=== PATIENT | female | born 1940 | race Caucasian/White ===

== ENCOUNTER → 2016-12-08 | Outpatient (CLI) | payer OTHER ==
--- NOTE | 2016-12-08 11:24 | DX ---
DEXA Bone Mineral Densitometry Clinical Indications: Postmenopausal, family history of osteoporosis, back pain, fracture, history o f breast cancer, tamoxifen x8 years Comparison: April 28, 2014 Technique: Bone Mineral Densitometry (BMD) by Dual Energy X-Ray Absorptiometry (DEXA) was performed utilizing the [email or web address] scanner. The lumbar spine was not measured in the AP projection. The bi lateral hips and forearm were evaluated in the AP projection. Vertebral fracture assessment was also performed. AP Left Hip: Neck BMD: 0.809 gm/cm2 T-score: -1.6 SD Z-score: 0.2 SD No significant change in total BMD AP Right Hip: Neck BMD: 0.788 gm/cm2 T-score: -1.8 SD Z-score: 0.1 SD No significant change in total BMD AP Left Forearm, 11/18: BMD: 0.744 gm/cm2 T-score: -1.5 SD Z-score: 0.8 SD No significant change. Vertebral Fracture Assessment: No significant fracture deformity. Conclusion: Considering the lowest measured site, the patient has stable low bone density. The ten year FRAX risk for any major osteoporotic fracture is 19.1% and for a hip fracture is 4.3%. A ccording to the recommendations of the National Osteoporosis Foundation, this patient would be a good candidate for bone strengthening pharmacologic intervention. Any bone loss in this patient is probably related to aging or estrogen deficiency. To prevent osteoporosis and to promote the patient's bone density, the following recommendations shou ld be considered: 1. Pursue a regular regimen of weightbearing and muscle strengthening exercises in order to reduce t he risk of falls and fractures (as tolerated by the patient's general medical condition). 2. Ensure that daily dietary calcium uptake is maximized. 3. Consider checking the serum vitamin D level. Ensure that intake of vitamin D is 800 IU per day (f or ages 71 and older). 4. Consider follow-up DEXA scan in one year if the patient begins pharmacologic intervention or in t wo years if she follows a more conservative approach, to assess the efficacy of pharmacologic interv ention or rate of bone loss in this patient.
== END ==
LOC: FIMAGING 10:16
PROVIDERS: ATTEND Internal Medicine Hematology & Oncology
DX: Z13.820 Encounter for screening for osteoporosis (principal); Z78.0 Asymptomatic menopausal state; Z85.3 Personal history of malignant neoplasm of breast

== ENCOUNTER → 2017-07-10 | Outpatient (CLI) | payer OTHER | LOC: FIMAGING 09:45 | PROVIDERS: ATTEND Internal Medicine Hematology & Oncology | CPT/HCPCS: G0202 ==

== ENCOUNTER 2017-11-24 16:57 | Emergency (ER) | payer OTHER ==
[2017-11-24] MEDS ORDERED: NS 1,000 ML IV ONE (19:13)
--- NOTE | 2017-11-24 19:16 | EDPHY ---
H & P Stated Complaint: flu like symptoms fever cough body/neck stiffness/aches since x mas Source: Patient Exam Limitations: No limitations - Personal History Current Tetanus/Diphtheria Vaccine: Yes - Medical/Surgical History Hx Asthma: No Hx Chronic Respiratory Disease: No Hx Diabetes: No Hx Cardiac Disease: No Hx Renal Disease: No Hx Cirrhosis: No Hx Alcoholism: No Hx HIV/AIDS: No Hx Splenectomy or Spleen Trauma: No Other PMH: breast cancer - Family History Significant Family History: No pertinent family hx - Social History Smoking Status: Never smoked Alcohol Use: Sober Drug Use: None Time Seen by Provider: 11/24/17 18:57 HPI/ROS: CHIEF COMPLAINT: Left neck pain and fevers HISTORY OF PRESENT ILLNESS: The patient is a 77-year-old female with no significant past medical history who comes to the emergency department complaining of persistent left-sided neck pain and fevers as well as a dry cough. She states that she began to have a cold at [place] and it improved over about the next 10 days however she then developed sinus congestion on the left with mucousy discharge as well as left-sided neck pain. No headache. No altered mental status. She has had fevers off and on. This morning she had a fever of 101. She has been taking aspirin occasionally most recently 4:00 p.m.. She is primarily worried about the pain and how she is going to sleep with such a sore neck. She denies any trauma. No focal weakness numbness or deficits. No bowel or bladder abnormalities. No abdominal pain. No chest pain or shortness of breath. She denies other sites of musculoskeletal pain. REVIEW OF SYSTEMS: Constitutional: See HPI EENTM: See HPI Respiratory: denies: cough, shortness of breath Cardiac: denies: chest pain, irregular heart rate, lightheadedness, palpitations Gastrointestinal/Abdominal: denies: abdominal pain, diarrhea, nausea, vomiting, blood streaked stools Genitourinary: denies: dysuria, frequency, hematuria, pain Musculoskeletal: See HPI Skin: denies: lesions, rash, jaundice, bruising Neurological: denies: headache, numbness, paresthesia, tingling, dizziness, weakness Hematologic/Lymphatic: denies: blood clots, easy bleeding, easy bruising Immunologic/allergic: denies: HIV/AIDS, transplant EXAM: GENERAL: Well-appearing, well-nourished and in no acute distress. HEAD: Atraumatic, normocephalic. EYES: Pupils equal round and reactive to light, extraocular movements intact, sclera anicteric, conjunctiva are normal. ENT: TMs normal, nares patent, oropharynx clear without exudates. Moist mucous membranes. NECK: Left-sided posterior muscle pain. No bony tenderness or step-offs. No tenderness with massage. No rash or erythema. No swelling. Normal range of motion, some pain with flexion LUNGS: Breath sounds clear to auscultation bilaterally and equal. No wheezes rales or rhonchi. HEART: Regular rate and rhythm without murmurs, rubs or gallops. ABDOMEN: Soft, nontender, normoactive bowel sounds. No guarding, no rebound. No masses appreciated. BACK: No CVA tenderness, no spinal tenderness, step-offs or deformities EXTREMITIES: Normal range of motion, no pitting or edema. No clubbing or cyanosis. NEUROLOGICAL: Cranial nerves II through XII grossly intact. Normal speech, normal gait. 5/5 strength, normal movement in all extremities, normal sensation PSYCH: Normal mood, normal affect. SKIN: Warm, dry, normal turgor, no visible rashes or lesions. (Saw Carrizales) Constitutional: Initial Vital Signs Temperature (C) 36.9 C 11/24/17 17:30 Heart Rate 88 11/24/17 17:30 Respiratory Rate 18 11/24/17 17:30 Blood Pressure 148/98 H 11/24/17 17:30 O2 Sat (%) 94 11/24/17 17:30 O2 Delivery Mode Room Air Allergies/Adverse Reactions: No Known Allergies Allergy (Verified 11/24/17 17:29) Home Medications: Medication Instructions Recorded CHOLECALCIFEROL [VITAMIN D] 11/07/11 Tamoxifen Citrate 11/07/11 Venlafaxine HCl [Effexor] 11/07/11 Lisinopril 11/24/17 Medical Decision Making - Diagnostics Imaging Results: Imaging Impressions Head CT 11/24/17 19:14 Impression: 1. Mild atrophy. 2. No acute hemorrhage, hydrocephalus, or mass effect. 3. Cerebrovascular atherosclerosis. 4. No definite acute infarct. 5. No sinusitis 6. Consider MRI of the brain, if there is continued clinical concern. . Findings and recommendations discussed with Emergency Department physician, SAW CARRIZALES at 19:33 hour, 11/24/2017. Final report concurs with initial preliminary interpretation. Lumbar Puncture 11/24/17 21:02 Impression: Successful diagnostic lumbar puncture. Specimens sent to the Laboratory. Procedures: Procedure: Lumbar puncture. Indication: Rule out infection After verbal informed consent from patient explaining the risks including infection, bleeding, and neurologic damage, a lumbar puncture was performed after the patient was prepped and draped in the usual fashion. The back was anesthetized with 1% lidocaine. The needle was inserted and a small amount of CSF was obtained but after about 2 drops it stopped flowing. Multiple attempts were made to adjust the needle in even attempted to go 1 level higher unsuccessfully. Approximately less than 1 cc of clear fluid was obtained. Opening pressure was not obtained. There were no complications. Not sent to the lab because insufficient The procedure was performed by myself. (Saw Carrizales) ED Course/Re-evaluation: I did perform a lumbar puncture on this patient. After about 2 drops of CSF it stopped flowing. I tried switching needles and it happened again. I then tried going up a level without success. I will have the patient go to interventional Radiology tab procedure done under fluoroscopy. Otherwise she is well-appearing feeling much better after Toradol. 9:20 p.m. care transferred to Dr. Corona. If the patient's lumbar puncture is unremarkable she will likely be discharged. She is already feeling much better. (Saw Carrizales) Differential Diagnosis: Partial list of the Differential diagnosis considered include but were not limited to; viral syndrome, muscle strain, sinus infection and although unlikely based on the history and physical exam, I also considered meningitis, sepsis, neuropathy. I discussed these differential diagnoses and the plan with the patient as well as the usual and expected course. The patient understands that the diagnosis is provisional and that in medicine we are not always correct and that further workup is often warranted. Usual and customary warnings were given. All of the patient's questions were answered. The patient was instructed to return to the emergency department should the symptoms at all worsen or return, otherwise to followup with the physician as we discussed. (Saw Carrizales) Other Provider: Care assumed from All at 2130 with DC if LP to be performed in radiology shows negative CSF. Signed out to Corwin at 2300 with patient in IR. (Jordy Corona) 12:30 a.m.- . LP performed is negative, just a few red blood cells are seen. Discussed these results with the patient. She is feeling better though still has some neck spasms. I will discharge her with instructions for ibuprofen, Tylenol, Valium as needed. She is in agreement with this plan. (Esther Olivia) - Data Points Laboratory Results: Laboratory Results 11/24/17 19:15 11/24/17 19:15 11/24/17 11/24/17 11/24/17 22:49 22:47 21:13 WBC RBC Hgb Hct MCV MCH MCHC RDW Plt Count MPV Neut % (Auto) Lymph % (Auto) [place] % (Auto) Eos % (Auto) Baso % (Auto) Nucleat RBC Rel Count Absolute Neuts (auto) Absolute Lymphs (auto) Absolute Monos (auto) Absolute Eos (auto) Absolute Basos (auto) Absolute Nucleated RBC Immature Gran % Immature Gran # PT 14.6 SEC SEC (12.0-15.0) INR 1.12 (0.83-1.16) APTT 26.8 SEC SEC (23.0-38.0) Sodium Potassium Chloride Carbon Dioxide Anion Gap BUN Creatinine Estimated GFR Glucose Calcium CSF Tube Number 4 1 CSF Appearance CLEAR CLEAR (CLEAR) (CLEAR) CSF Color COLORLESS COLORLESS (COLORLESS) (COLORLESS) CSF Supernatant COLORLESS COLORLESS (COLORLESS) (COLORLESS) CSF WBC 0 /mm3 /mm3 0 /mm3 /mm3 (0-5) (0-5) CSF RBC 3 /mm3 H /mm3 18 /mm3 H /mm3 (0-0) (0-0) CSF Glucose 56 mg/dL mg/dL (50-75) CSF Total Protein 53 mg/dL mg/dL (12-60) 11/24/17 11/24/17 19:15 19:15 WBC 13.85 10^3/uL H 10^3/uL (3.80-9.50) RBC 4.41 10^6/uL 10^6/uL (4.18-5.33) Hgb 13.7 g/dL g/dL (12.6-16.3) Hct 39.1 % % (38.0-47.0) MCV 88.7 fL fL (81.5-99.8) MCH 31.1 pg pg (27.9-34.1) MCHC 35.0 g/dL g/dL (32.4-36.7) RDW 12.9 % % (11.5-15.2) Plt Count 208 10^3/uL 10^3/uL (150-400) MPV 10.9 fL fL (8.7-11.7) Neut % (Auto) 77.3 % H % (39.3-74.2) Lymph % (Auto) 11.8 % L % (15.0-45.0) [place] % (Auto) 9.4 % % (4.5-13.0) Eos % (Auto) 0.6 % % (0.6-7.6) Baso % (Auto) 0.5 % % (0.3-1.7) Nucleat RBC Rel Count 0.0 % % (0.0-0.2) Absolute Neuts (auto) 10.69 10^3/uL H 10^3/uL (1.70-6.50) Absolute Lymphs (auto) 1.64 10^3/uL 10^3/uL (1.00-3.00) Absolute Monos (auto) 1.30 10^3/uL H 10^3/uL (0.30-0.80) Absolute Eos (auto) 0.09 10^3/uL 10^3/uL (0.03-0.40) Absolute Basos (auto) 0.07 10^3/uL 10^3/uL (0.02-0.10) Absolute Nucleated RBC 0.00 10^3/uL 10^3/uL (0-0.01) Immature Gran % 0.4 % % (0.0-1.1) Immature Gran # 0.06 10^3/uL 10^3/uL (0.00-0.10) PT INR APTT Sodium 138 mEq/L mEq/L (135-145) Potassium 4.1 mEq/L mEq/L (3.5-5.2) Chloride 104 mEq/L mEq/L (97-110) Carbon Dioxide 23 mEq/l mEq/l (22-31) Anion Gap 11 mEq/L mEq/L (8-16) BUN 21 mg/dL mg/dL (7-23) Creatinine 0.8 mg/dL mg/dL (0.6-1.0) Estimated GFR > 60 Glucose 106 mg/dL H mg/dL (70-100) Calcium 9.4 mg/dL mg/dL (8.5-10.4) CSF Tube Number CSF Appearance CSF Color CSF Supernatant CSF WBC CSF RBC CSF Glucose CSF Total Protein Microbiology Results: MICROBIOLOGY 11/24/17 22:47 Cerebral Spinal Fluid Gram Stain - Final Medications Given: Discontinued Medications Diazepam (Valium 5 Mg Prepack#4) 1 btl TAKEHOME EDNOW ONE Stop: 11/25/17 00:32 Last Admin: 11/25/17 00:42 Dose: 1 btl Sodium Chloride (Ns) 1,000 mls @ 0 mls/hr IV ONCE ONE; Wide Open PRN Reason: Protocol Stop: 11/24/17 19:14 Last Admin: 11/24/17 19:37 Dose: 1,000 mls Ketorolac Tromethamine (Toradol) 15 mg IVP EDNOW ONE Stop: 11/24/17 19:33 Last Admin: 11/24/17 19:41 Dose: 15 mg Departure - Departure Disposition: Home, Routine, Self-Care Clinical Impression: Neck muscle spasm Condition: Good Instructions: Diazepam (By mouth), Cervical Strain (ED) Additional Instructions: I recommend you take ibuprofen 400 mg every 6 hr, you can take this with acetaminophen 650 mg every 6 hr. If your still having pain after this, I recommend you take the Valium as prescribed. You should follow up with your primary care doctor in 1-2 days unless your feeling completely better. Referrals: Maria Isabel Sparks PA [Primary Care Provider] - As per Instructions
[2017-11-24 19:27] LABS: PLATELET COUNT 208 10^3/uL (150-400)
[2017-11-24] MEDS ORDERED: KETOROLAC 30 MG/1 ML SDV IVP ONE (19:32)
--- NOTE | 2017-11-24 19:37 | CPEKG ---
Heart Rate: 82 RR Interval: 732 P-R Interval: 176 QRSD Interval: 84 QT Interval: 400 QTC Interval: 468 P [place]: 74 QRS [place]: 10 T Wave [place]: 4 EKG Severity - NORMAL ECG - EKG Impression: SINUS RHYTHM Electronically Signed By: Jordy Corona 24-Nov-2017 23:07:24
[2017-11-24 21:29] LABS: INR 1.12 (0.83-1.16); PROTIME(PATIENT) 14.6 SEC (12.0-15.0)
[2017-11-24] MEDS ORDERED: LIDOCAINE 1% 300 MG/30 ML SDV ONE (21:38)
[2017-11-24 23:04] VITALS: RESP 16
[2017-11-25] MEDS ORDERED: DIAZEPAM 5 MG PREPACK#4 BTL TAKEHOME ONE (00:31)
[2017-11-25 00:34] VITALS: BP 134/69; PULSE 71; TEMP 98.6; O2SAT 96
== END 2017-11-25 00:51 | disposition home or self-care (01) ==
PROC: 009U3ZX Drainage of Spinal Canal, Percutaneous Approach, Diagnostic (ICD-10-PCS; principal; 2017-11-24)
PROC: 009U3ZX Drainage of Spinal Canal, Percutaneous Approach, Diagnostic (ICD-10-PCS; 2017-11-24)
DX: M62.838 Other muscle spasm (principal); E86.9 Volume depletion, unspecified; Z85.3 Personal history of malignant neoplasm of breast
CPT/HCPCS: 62270; 70450; 93005; 96361; 96374; 99285; J1885

== ENCOUNTER 2017-11-28 13:10 | Observation (INO) | payer OTHER ==
--- NOTE | 2017-11-28 13:46 | EDPHY ---
HPI/HX/ROS/PE/MDM Narrative: CHIEF COMPLAINT: Neck stiffness, facial droop and swelling HISTORY OF PRESENT ILLNESS: The patient is a 77 y/o female with a history of breast cancer (treated with tamoxifen), and hypertension, arriving with her complaining of neck pain and stiffness and facial droop and swelling. She was ill starting around [place] with a cough, fatigue, and rhinorrhea. She was evaluated in this ED on Thursday, 4 days ago, for neck stiffness at which time she had blood work, head CT, and spinal tap. All of these tests were unremarkable. She was advised to follow-up with her PCP fro continued care of her neck stiffness. Her PCP prescribed Valium for pain and advised her to continue taking Tylenol. She had a low-grade fever a few days ago that resolved. Aside from the fever she had been feeling better. Last night, she went to bed and woke up a few hours later with increased pain in her neck. She took half of a 5 mg Valium and went back to bed. She woke up a few hours later and was still in pain. She took the other half of her 5 mg Valium and went to sleep. Again, a few hours later she awoke in pain and took Tylenol and went back to bed. When she woke up in the morning she was slightly better. She went to have a hair cut and on the drive over noticed some facial tingling. After the hair cut she looked in the mirror and noticed a left-sided facial droop. She consulted a triage nurse who directed her to be evaluated for a possible stroke. On her way to the ED, she began developing left-sided facial swelling. She has associated fatigue. She is currently afebrile. She denies any tingling or numbness in her extremities, word-finding difficulty, visual changes ,headache, tooth pain, difficulty speaking clearly, other neurological issues, or any other associated symptoms. She denies cardiac history. No fever, chills, chest pain, shortness of breath, palpitations, vomiting, diarrhea, urinary complaints, headache, lightheadedness. REVIEW OF SYSTEMS: Aside from elements discussed in the HPI, a comprehensive 10-point review of systems was reviewed and is negative. PAST MEDICAL HISTORY: Breast cancer, hypertension, mood instability, recent illness SOCIAL HISTORY: at bedside, lives in [place], retired VITAL SIGNS: Reviewed by me GENERAL: Well-developed, well-nourished, resting comfortably in no respiratory distress. Pleasant. HEENT: Atraumatic. Face: swelling of left lip, left cheek, and left under eye. No warmth. No erythema. No dental source by history. Eyes: No icterus, no injection. Mouth: moist mucous membranes. Minimal swelling of left tonsil and tonsillar palate. No erythema or lesions. Neck: Submandibular adenopathy, tenderness in the left posterior trapezius, left upper paraspinous, and left upper neck soft tissues. LUNGS: Clear to auscultation bilaterally, no wheezes, rhonchi or rales. CARDIAC: Regular rate and rhythm, no rubs, murmurs or gallops. ABDOMEN: Soft, nontender, nondistended, bowel sounds normal. BACK: No CVA tenderness. EXTREMITIES: No trauma. No edema. Range of motion is normal throughout. NEURO: Alert and oriented, grossly nonfocal. SKIN: Warm and dry, no rash. PSYCHIATRIC: Normal mentation, no agitation. ED Course: The patient presents with several weeks of neck stiffness and new onset facial swelling. She noticed a facial droop earlier but denies any neurologic symptoms and has a normal neurological exam. Her pain has increased over the past day. She denies any recent changes in medication. Plan for neck CT and labs. CT scan of the neck with IV contrast as well as CT maxillofacial do not indicate any inflammatory or infectious source of her symptoms. I reassessed this patient and found her neck stiffness and pain improved. Her facial swelling has worsened. She now informs me she may have had hives yesterday on her neck. Patient may be developing an allergic reaction or may be having lip swelling secondary to lisinopril. However it is unilateral, only affecting the left side of her lip. She has no tongue swelling. Plan for epi, Benadryl, and steroids and then reevaluation. I administered steroids, epi, and Benadryl and her lip swelling continues to worsen. At this point in time I feel admission is her best option. I spoke to the hospitalist service regarding admission for this patient. They agree to admit. I discussed this with the patient. She agrees. MDM: 77-year-old female with posterior neck pain and stiffness left greater than right for several weeks now developing the swelling of the left side of her face especially around her left upper lip. Differential diagnosis includes deep space infection, muscle spasm, facial swelling secondary to lisinopril, allergic reaction, dental source for infection, superior vena cava syndrome in this patient with a history of breast cancer. - Data Points Imaging Results: Imaging Impressions Face CT 11/28/17 14:26 Impression: 1. No evidence of abscess or significant inflammatory changes within the face or neck. 2. Extensive cervical spine degenerative disk disease. Results called to Dr. Esperanza Scales at the time of the interpretation. Neck CT 11/28/17 14:26 Impression: 1. No evidence of abscess or significant inflammatory changes within the face or neck. 2. Extensive cervical spine degenerative disk disease. Results called to Dr. Esperanza Scales at the time of the interpretation. Imaging: Discussed imaging studies w/ call person Radiologist Laboratory Results: Laboratory Results 11/28/17 13:48 11/28/17 13:48 11/28/17 11/28/17 11/28/17 13:48 13:48 13:48 WBC 6.53 10^3/uL 10^3/uL (3.80-9.50) RBC 4.23 10^6/uL 10^6/uL (4.18-5.33) Hgb 13.2 g/dL g/dL (12.6-16.3) Hct 37.8 % L % (38.0-47.0) MCV 89.4 fL fL (81.5-99.8) MCH 31.2 pg pg (27.9-34.1) MCHC 34.9 g/dL g/dL (32.4-36.7) RDW 12.6 % % (11.5-15.2) Plt Count 235 10^3/uL 10^3/uL (150-400) MPV 10.5 fL fL (8.7-11.7) Neut % (Auto) 67.7 % % (39.3-74.2) Lymph % (Auto) 21.1 % % (15.0-45.0) [place] % (Auto) 7.8 % % (4.5-13.0) Eos % (Auto) 2.3 % % (0.6-7.6) Baso % (Auto) 0.9 % % (0.3-1.7) Nucleat RBC Rel Count 0.0 % % (0.0-0.2) Absolute Neuts (auto) 4.42 10^3/uL 10^3/uL (1.70-6.50) Absolute Lymphs (auto) 1.38 10^3/uL 10^3/uL (1.00-3.00) Absolute Monos (auto) 0.51 10^3/uL 10^3/uL (0.30-0.80) Absolute Eos (auto) 0.15 10^3/uL 10^3/uL (0.03-0.40) Absolute Basos (auto) 0.06 10^3/uL 10^3/uL (0.02-0.10) Absolute Nucleated RBC 0.00 10^3/uL 10^3/uL (0-0.01) Immature Gran % 0.2 % % (0.0-1.1) Immature Gran # 0.01 10^3/uL 10^3/uL (0.00-0.10) ESR 34 MM/HR H MM/HR (0-30) PT 13.5 SEC SEC (12.0-15.0) INR 1.01 (0.83-1.16) Sodium 141 mEq/L mEq/L (135-145) Potassium 4.5 mEq/L mEq/L (3.5-5.2) Chloride 101 mEq/L mEq/L (97-110) Carbon Dioxide 29 mEq/l mEq/l (22-31) Anion Gap 11 mEq/L mEq/L (8-16) BUN 15 mg/dL mg/dL (7-23) Creatinine 0.9 mg/dL mg/dL (0.6-1.0) Estimated GFR > 60 Glucose 119 mg/dL H mg/dL (70-100) Calcium 9.7 mg/dL mg/dL (8.5-10.4) C-Reactive Protein 31.0 mg/L H mg/L (<10.0) Medications Given: Diphenhydramine HCl (Benadryl Injection) 25 mg IVP Q4HRS SHI Stop: 05/27/18 21:59 Last Admin: 11/28/17 21:13 Dose: 25 mg Prednisone (Prednisone) 40 mg PO DAILY SHI Stop: 05/27/18 19:44 Last Admin: 11/28/17 21:13 Dose: 40 mg Discontinued Medications Diazepam (Valium Injection) 2.5 mg IVP EDNOW ONE Stop: 11/28/17 14:05 Last Admin: 11/28/17 14:22 Dose: 2.5 mg Diphenhydramine HCl (Benadryl Injection) 25 mg IVP EDNOW ONE Stop: 11/28/17 16:25 Last Admin: 11/28/17 17:05 Dose: 25 mg Epinephrine HCl (Epinephrine) 0.3 mg IM EDNOW ONE Stop: 11/28/17 16:25 Last Admin: 11/28/17 17:05 Dose: 0.3 mg Sodium Chloride (Ns) 1,000 mls @ 0 mls/hr IV ONCE ONE; Wide Open PRN Reason: Protocol Stop: 11/28/17 14:05 Last Admin: 11/28/17 14:19 Dose: 1,000 mls Ketorolac Tromethamine (Toradol) 15 mg IVP EDNOW ONE Stop: 11/28/17 14:05 Last Admin: 11/28/17 14:24 Dose: 15 mg Methylprednisolone Sodium Succinate (Solu-Medrol) 125 mg IVP EDNOW ONE Stop: 11/28/17 16:25 Last Admin: 11/28/17 17:11 Dose: 125 mg General Time Seen by Provider: 11/28/17 13:36 Initial Vital Signs: Initial Vital Signs Temperature (C) 36.6 C 11/28/17 13:16 Heart Rate 76 11/28/17 13:16 Respiratory Rate 18 11/28/17 13:16 Blood Pressure 155/82 H 11/28/17 13:16 O2 Sat (%) 97 11/28/17 13:16 O2 Delivery Mode Room Air Allergies/Adverse Reactions: No Known Allergies Allergy (Verified 11/24/17 17:29) Home Medications: Medication Instructions Recorded Tamoxifen Citrate 20 mg PO DAILY 11/07/11 Lisinopril/Hctz 10/12.5 mg 1 ea PO DAILY 11/24/17 [Zestoretic/Prinzide 10/12.5MG (*)] Venlafaxine Xr [Effexor Xr 75MG 75 mg PO DAILY 11/28/17 (*)] Departure - Departure Disposition: [facility] Clinical Impression: Neck pain, Lip swelling, Facial swelling Condition: Fair Report Scribed for: Esperanza Scales Report Scribed by: Fawn Sterling Date of Report: 11/28/17 Time of Report: 16:11 Physician Review and Approval Statement: Portions of this note were transcribed by a medical assistant supervisor. I personally performed a history, physical exam, medical decision making, and confirmed accuracy of information the transcribed note.
[2017-11-28] MEDS ORDERED: KETOROLAC 30 MG/1 ML SDV IVP ONE (14:04)
[2017-11-28] MEDS ORDERED: NS 1,000 ML IV ONE (14:04)
[2017-11-28] MEDS ORDERED: DIAZEPAM 10 MG/2 ML SYR IVP ONE (14:04)
[2017-11-28 14:10] LABS: PLATELET COUNT 235 10^3/uL (150-400)
[2017-11-28 14:23] LABS: INR 1.01 (0.83-1.16); PROTIME(PATIENT) 13.5 SEC (12.0-15.0)
[2017-11-28] MEDS ORDERED: IOPAMIDOL (ISOVUE-300) 100 ML BTL ONE (14:49)
[2017-11-28] MEDS ORDERED: methylPREDNISolone SOD SUCC 125 MG/2 ML VIAL IVP ONE (16:24)
[2017-11-28] MEDS ORDERED: ONDANSETRON 4 MG/2 ML VIAL IVP PRN (19:37)
[2017-11-28] MEDS ORDERED: ACETAMINOPHEN 325 MG TAB PO PRN (19:37)
[2017-11-28] MEDS ORDERED: ONDANSETRON DISINTEGRATING 4 MG TAB PO PRN (19:37)
[2017-11-28 20:18] VITALS: RESP 16
--- NOTE | 2017-11-28 20:39 | GHP ---
[f rep st] HISTORY AND PHYSICAL DATE OF ADMISSION: 11/28/2017 HISTORY OF PRESENT ILLNESS: The patient is a 77-year-old female with a history of hypertension and b reast cancer, who reports to the emergency department the 2nd time in a couple of days with neck stif fness. She was seen here a couple of days ago where she had apparently low-grade temperatures and ne ck stiffness, as well as a possible headache. She had a lumbar puncture that was unremarkable. She had a head CT that was unremarkable. She was discharged home. She has continued to have neck pain, which is in her left posterior neck and her scalene muscles. She has not had fever, chills, or headache. This morning, she was getting her hair cut. She looked in the mirror, she noticed she was having left-sided facial swelling. She states she has taken an AC E inhibitor for 9 or 10 months. She has no tongue swelling. She has no dysarthria. She has not had fever or chills. She takes tamoxifen for estrogen receptor positive breast cancer, it was a number of years ago. She has had normal followup since then. In the emergency department, she had a neck and face CT performed with contrast showing no evidence o f abscess. There are significant inflammatory changes within the face and the neck. She was noted t o have degenerative disk disease. I have reviewed and interpreted these images myself and discussed it with Esperanza Scales. The patient also denies any numbness or tingling or weakness in her left hand. REVIEW OF SYSTEMS: Complete 10-point review of systems conducted, negative except as noted in the HP I. PAST MEDICAL HISTORY: Breast cancer, hypertension. ALLERGIES: No known drug allergies. MEDICATIONS: Lisinopril/hydrochlorothiazide, tamoxifen, and venlafaxine. SOCIAL HISTORY: She is originally from [place], [place]. Lives here with her . She e [employer]. She is a lifelong nonsmoker. FAMILY HISTORY: Reviewed and unremarkable. PHYSICAL EXAMINATION: VITAL SIGNS: Presenting vitals today: Temperature 36.6, blood pressure 155/8 2, pulse 76, breathing 18 times a minute, 97% on room air. GENERAL: No acute distress. HEENT: Scl erae anicteric. Oropharynx shows full lips on the left side. Palpation inside her mouth reveals no mass, no fluctuance, no evidence of abscess. Her tongue is not swollen. There is normal oral mucosa . There is fullness in her left supraclavicular fossa, not seen on the right. LUNGS: Clear to ausc ultation bilaterally. HEART: S1, S2. ABDOMEN: Soft, nontender, nondistended. LOWER EXTREMITIES: Without edema. Calves are nontender. SKIN: Without rash. NEUROLOGIC: Nonfocal. LABORATORY DATA: Today, her white count is 6.5, hematocrit 37.8, platelets are 235,000. INR is 1. Sodium 141, potassium 4.5, chloride 101, bicarb 29, BUN 15, creatinine 0.9, glucose 119. CRP is elev ated at 31. ESR is 34. Imaging reports are as noted in the HPI. She had an EKG 3 days ago, also in terpreted by me, shows sinus at 82, with normal axis and intervals. No ST or T-wave changes. ASSESSMENT AND PLAN: A 77-year-old female with facial swelling and neck pain. 1. Face swelling/neck pain. I do not believe this is a reaction to lisinopril, although it is reaso nable to discontinue it. 2. I have concern that she has an intrathoracic process driving this. I have reordered a CT venogra m of the chest to evaluate for clot in her superior vena cava or internal jugular, as well as intrath oracic mass. I have also ordered an MRI of her cervical spine. 3. Hypertension. The patient is hypertensive, I think this probably warrants permanent discontinuat ion of her lisinopril. 4. Question of viral syndrome. I do not think the patient has a viral syndrome. There are no eleva dav inflammatory markers. See above. DISPOSITION: Observation status. /[id number]/MODL
[2017-11-28] MEDS: predniSONE 20 MG TAB PO SCH (21:13)
[2017-11-28] MEDS ORDERED: IOPAMIDOL (ISOVUE 370) 100 ML BTL IV ONE (21:35)
[2017-11-29] MEDS ORDERED: GADOBUTROL 10 ML VIAL IVP ONE (08:05)
[2017-11-29] MEDS ORDERED: TAMOXIFEN CITRATE 10 MG TAB PO SCH (09:00)
[2017-11-29] MEDS ORDERED: VENLAFAXINE XR 75 MG CAP PO SCH (09:00)
--- NOTE | 2017-11-29 09:26 | HOSPPROG ---
Hospitalist Progress Note Assessment/Plan: Patient is a 77-year-old female with a history of hypertension and breast cancer presented the emergency department with neck neck stiffness she has not had fever chills or headache. She noted that she had some left-sided facial swelling. Today the patient. Chart reviewed *facial swelling with neck pain CT of and neck show nothing acute CTA does not note SVC syndrome or PE to get and MRI lisinopril on hold *left facial droop with flattening of nasolabial fold she and her noticed yesterday, but no other type focal deficits will get a brain MRI to evaluate neurology to see Initially may been caused by the swelling and difficult to see, but with residual of the swelling continues to have left facial droop *HTN Blood pressure stable *Poss viral syndrome * severe central canal and severe bilateral neural foraminal stenosis, cord is compressed at 3 levels -spoke with Neurosurgery they will see her today * plan. Neurology to see today. Will get an MRI now. Spoke with Neurosurgery they will see her either today or tomorrow. Appreciate the involvement of the specialties. She had been to the ER earlier this week and had a lumbar puncture. Reviewed her CSF studies and this did not show any type of infectious process Subjective: Leatha overall is feeling better but is concerned about a left facial droop possibly Objective: Vital Signs Temp Pulse Resp BP Pulse Ox 36.9 C 84 16 110/60 94 11/29/17 07:58 11/29/17 07:58 11/29/17 07:58 11/29/17 07:58 11/29/17 07:58 11/28/17 11/29/17 11/30/17 05:59 05:59 05:59 Intake Total 1000 Output Total 500 Balance 500 PT 13.5 SEC (12.0-15.0) 11/28/17 13:48 INR 1.01 (0.83-1.16) 11/28/17 13:48 - Physical Exam Constitutional: no apparent distress, appears nourished, No not in pain (Has some bilateral trapezius and some neck pain) Eyes: PERRL Ears, Nose, Mouth, Throat: hearing normal Cardiovascular: regular rate and rhythym Respiratory: no respiratory distress Skin: warm, normal color Musculoskeletal: full muscle strength Neurologic: AAOx3, CN II-XII Intact, facial droop (Slight left facial), No pronator drift Psychiatric: interacting appropriately, not anxious ICD10 Worksheet Patient Problems: Problems Problem Status Onset Facial swelling Acute Lip swelling Acute Neck pain Acute
[2017-11-29] MEDS ORDERED: FAMOTIDINE 20 MG TAB PO SCH (09:30)
[2017-11-29] MEDS: predniSONE 20 MG TAB PO SCH (10:05)
[2017-11-29 12:04] VITALS: BP 139/69; PULSE 87; TEMP 97.9; O2SAT 93
--- NOTE | 2017-11-29 12:41 | GCON ---
[f rep st] CONSULTATION DATE OF CONSULTATION: 11/29/2017 CONSULTING SERVICE: Dr. Sierra of [facility]. REASON FOR CONSULT: Severe cervical stenosis. HISTORY OF PRESENT ILLNESS: The patient is a pleasant 77-year-old female, who has been seen twice th is week for neck stiffness and facial swelling, and was discharged after a negative LP and then admit dav yesterday for similar symptoms. She has also noticed a mild facial droop on the left side with i nability to raise her brow as high on that side and flattening of her nasal labial folds. During wor kup for her symptoms, an MRI of her cervical spine was performed and she was instantly found to have severe cervical stenosis at C4-5, 5-6 and 6-7, with some cord signal change. Prior to presenting wit h this particular illness, she has not endorsed any issues with pain, numbness, or tingling, or weakn ess in her arms or hands. She is not dropping objects. She feels that her balance is a little bit o ff, but this has been ongoing for many years, and she is not having falls, thus she has not had any o f the classic symptoms of cervical myelopathy. I spent a good deal of time discussing cervical steno sis and its natural history with the patient and her at the bedside. PAST MEDICAL AND SURGICAL HISTORY: Per HPI. Breast cancer and high blood pressure. Her breast canc er is well controlled and she does have followup for this and takes tamoxifen. ALLERGIES: No known drug allergies. CODE STATUS: Full. HOME MEDICATIONS: Lisinopril, hydrochlorothiazide, tamoxifen, and venlafaxine. SOCIAL HISTORY: Originally from [place]. , living here with her . Enjoys [employer]. Lifelong nonsmoker. Denies illicit drug abuse. She and her are planning a 1 week t rip to [place] coming soon, and then a 2 month trip to [facility]. FAMILY HISTORY: Noncontributory. Her mother at 57, of an unknown cause. She does not know of any spinal arthritis in her family history. VITAL SIGNS: Afebrile, with a temperature of 36.6 degrees centigrade. Blood pressure 139/69, heart rate 87, respiratory rate 16, saturating 93% on room air. LABS: White blood cell count 6.53, hemoglobin 13.2, platelets 235, neutrophils normal. INR 1.01. E levated D-dimer at 1.17. Sodium 141, potassium 4.5, BUN 15, creatinine 0.9, glucose 119. C-reactive protein 31. NEUROLOGIC EXAM: The patient is awake, alert, oriented x3 and appears stated age. She has no acute distress. She has normal fluent speech. She has normal cranial nerves with the exception of a very mild peripheral 7th nerve palsy on the left, which I would grade a House-Brackmann 1-2. Other crania l nerves are normal. Her strength is 5/5 in all extremities. She has no Jennings's reflex or abnorma l deep tendon reflexes. She has no clonus or Babinski. She has good proprioception. She has a norm al sensory exam in upper and lower extremities. She has no cerebellar findings. Her gait is deferre d. REVIEW OF IMAGING: I have reviewed the patient's CT of her neck, and MRI of her cervical spine, and MRI of her brain. The MRI of her brain appears normal to me for her age. Her MRI of her cervical sp ine indeed shows C4-5, 5-6, and 6-7 severe stenosis at the level of each disk space from a combinatio n of calcified disk osteophyte bulges and hypertrophied ligamentum flavum. She does have some cord s ignal change at approximately C5 level posteriorly. She has good retention of her cervical lordosis. IMPRESSION AND PLAN: The patient is a 77-year-old female, here for facial swelling and a mild left-s ided facial droop, and some neck stiffness, which is improved today, and was instantly found to have severe cervical stenosis from C4-C7. She has none of the classic signs or symptoms of myelopathy yolanda or to this illness. She has a normal neurologic exam. I believe this is asymptomatic and incidental ly found cervical stenosis, to that end, I need to see her in my office in approximately 2 weeks befo re she goes to [facility], so we can further discuss the natural history of cervical stenosis and di scuss the hypothetical possibility of increased rate of spinal cord injury in her lifetime, and discu ss the pros and cons of taking a prophylactic surgical approach. Please continue your workup and man agement of her presenting symptoms. Thank you for this consult. I am signing off. I have provided the patient and her with my o ffice number so she may get an appointment. /[id number]/MODL
--- NOTE | 2017-11-29 13:20 | NEUROPROG ---
Assessment: HOSPITAL NEUROLOGY CONSULT REQUESTING: Rossy Sierra NP REASON: facial weakness HPI: 77 year old right-handed woman admitted to our facility 11/28 due to facial swelling, facial tingling, and facial weakness. She has a background of chronic neck pain, hypertension and breast cancer. Patient was driving home from a hair appointment yesterday and felt an odd tingling sensation along the left nasolabial fold region. She looked in the rearview mirror briefly and noted her left face was not elevating when smiling. When she got home, she looked in the mirror and noted the left side of her face/lips were swollen and a little red. She called a nurse triage line and was instructed to go to the ED. In the ED here she was indeed found to have left facial swelling, for which she got epinephrine, diphenhydramine and methylprednisolone. Facial swelling has improved overnight. CT of the face did not reveal any abscess or inflammatory process. CT of the chest was ordered to evaluate for superior vena cava compression, and this was negative for anything acute or culprit in her swelling. MRI of the C-spine was ordered, which showed incidental cord compression from disc-osteophyte complex at C4-5 ( seen by neurosurgery, going to followed in outpatient setting). On admission the patient had noted her left facial weakness. It has not been profound or frankly noticeable. On my interview the patient states her face tingling is resolved and the facial swelling has resolved, though her cheeks still seem a bit red. She had no other focal deficits with this event, including extremity weakness/sensory loss, visual disturbance, speech/language change, swallowing trouble, change in voice, change in gait. No fevers, chills , sweats. She has chronic neck stiffness and pain, but nothing has changed with this. No photophobia. MRI brain wo was ordered and showed mild chronic microvascular ischemic changes in the subcortical white matter, as well as nonspecific swelling in the soft tissue of the cheeks, but nothing more. ROS: As per the HPI, otherwise a complete 12 point ROS was performed and is negative ALLERGIES AND MEDS: As recorded in the EMR - reviewed and reconciled PFSH: As per the intake H&P by Dr. Tesfaye from 11/28 EXAM: VS reviewed in EMR GEN: WDWN laying in NAD HEENT: NCAT, sclera anicteric, conjunctiva not injected, MMM, oropharynx clear, no scalp tenderness, cheeks a bit erythematous, no facial swelling present NECK: supple, nontender, no meningismus CV: RRR s1 s2 wo m/r/c/g. Carotid pulses 2+ wo bruit NEURO: MS: awake, alert, oriented to all spheres. Speech nondysarthric. No language disturbance. Follows commands. Attends to both sides. Recent/remote memory grossly intact. Mood euthymic. Good fund of knowledge. CN: pupils 3mm round and reactive. Unable to visualize fundi. VFF. Primary gaze centered. Restricted vertical gaze. Facial sensation preserved. At rest the face is symmetric, and when asked to smile there is variable pulling downward of the left corner of the mouth, which is more consistent with volitional activation of the depressor angularis tristan. Cheek puffing is strong and symmetric. Tensing of the platysma is symmetric. She can indeed smile symmetrically when asked to do so through discomfort in the left cheek. Hearing grossly intact to finger rub. Palatoglossal movements intact. Shoulder shrug and head turn strong. MOTOR: normal bulk/tone. No adventitial movements. Full power throughout. SENSORY: symmetric and intact LT/PP throughout. No extinction. COORD: no ataxia FN/HS. Mariam preserved. REFLEX: plantars down. No clonus. Absent ankle jerks, other DTRS 2/4. GAIT: deferred to PT safety eval DATA REVIEW: Labs reviewed in EMR ESR 34 CRP 31 PERSONALLY INTERPRETED RESULTS AND DATA: MRI brain wo as per the HPI IMPRESSION AND RECOMMENDATIONS: // FACIAL AND LIP SWELLING // TRANSIENT LEFT FACIAL TINGLING // VARIABLE DEPRESSION OF THE ANGLE OF THE LIPS - VOLITIONAL Patient with soft tissue swelling in the left face and lips which has resolved with medication intervention. I suspect her transient tingling along the left nasolabial fold was related to local irritation from the swelling. Her neuroimaging is unremarkable for a central process like a stroke or mass. The facial drooping at the angle of the lip seems more volitional. She is activating the depressor angularis tristan, which when asked about this she states it is uncomfortable to elevate the left angle of the lips. Further, the exam is variable, as she can indeed activate and smile symmetrically, puff her cheeks without issue and activate the platysma muscles symmetrically. Luckily, the major underlying issue of acute facial swelling has resolved with my colleagues' interventions. There is some indication of some soft tissue swelling in the cheeks on her MRI, and inflammatory markers are elevated. Overall, would continue to investigate and treat the swelling/inflammation as per her primary team. I don't see any indication of primary neurologic issue. Will sign off. Please recall PRN. Objective: Vital Signs Temp Pulse Resp BP Pulse Ox 36.6 C 87 16 139/69 H 93 11/29/17 12:00 11/29/17 12:00 11/29/17 12:00 11/29/17 12:00 11/29/17 12:00 11/28/17 11/29/17 11/30/17 05:59 05:59 05:59 Intake Total 1000 Output Total 500 Balance 500 PT 13.5 SEC (12.0-15.0) 11/28/17 13:48 INR 1.01 (0.83-1.16) 11/28/17 13:48 Allergies/Adverse Reactions: No Known Allergies Allergy (Verified 11/24/17 17:29)
--- NOTE | 2017-11-29 15:17 | GDS ---
[f rep st] DISCHARGE SUMMARY DISCHARGE DIAGNOSES: 1. Facial swelling with neck pain. 2. Concern for left facial droop. 3. Hypertension. 4. Possible viral syndrome. 5. Severe central canal stenosis. CONSULTATION: 1. Dr. Saw Lomeli. 2. Dr. Chris Marc. HISTORY OF PRESENT ILLNESS: Briefly, the patient is a 77-year-old female with a history of hypertension and breast cancer. She presented to the emergency room with neck stiffness. She had not had any fever or headaches. She noted that she had significant left-sided facial swelling. A CT of the face was performed which showed no evidence of abscess or significant inflammatory changes within the face or neck. She has extensive cervical spine degenerative disease. A neck CT was performed. This showed no evidence of abscess or significant inflammatory changes within the face or neck. Subsequently, a CTA was performed. She had evaluation of her superior vena cava, which showed that this was widely patent. She had no mediastinal mass or structure explaining for the facial swelling. She has no acute pulmonary embolic disease, and notes that she has mild airway disease. A cervical spine MRI was done because of the neck pain. This showed she had no evidence of metastatic disease or explanation of left-sided swelling. She has severe central canal and severe bilateral neural foraminal stenosis at C4-C5, C5-C6 and C6-C7 due to diffuse broad-based osteophyte disk complexes and facet hypertrophy. She has cord compressed in all 3 levels and focal gliosis. She was seen and evaluated by Neurosurgery, who recommend she follow up in 2 weeks. In addition, there was concern of a possible left facial droop. She was seen and evaluated by Dr. Lomeli, who said that her neurologic imaging was unremarkable. He noted that her facial droop with the angle of the lip, which seemed more volitional. She will be discharged home. Recommendation is for her to stop her lisinopril in case she had allergic reaction to this and further follow up with her primary care provider. HOSPITAL COURSE: 1. Left facial swelling. Lisinopril is on hold. It has improved with use of steroids, Benadryl and was given a dose of epinephrine in the emergency room, markedly better. Will continue on a short burst of prednisone and have her follow up with her primary care provider and to stop lisinopril. 2. Left facial droop and flattening of the nasolabial fold. MRI does not indicate a stroke. 3. Hypertension. Blood pressures been stable without her lisinopril. 4. Possible viral syndrome, stable. 5. Severe central canal and severe bilateral neural foraminal stenosis. Further follow up with Dr. Marc in the outpatient setting. CONDITION AT DISCHARGE: Stable. Blood pressure is 139/69, heart rate is 87, respiratory rate is 16, O2 saturations on room air 93%, temperature is 36.6 Celsius. MEDICATIONS AT DISCHARGE: Please see the EMR. DISCHARGE INSTRUCTIONS: 1. Further follow up with Dr. Marc in the outpatient setting. 2. Stay on the prednisone for the next 4 days. 3. Take an antihistamine as needed. She also can consider taking Claritin. 4. Return to the emergency room if she develops any shortness of breath, swelling of her lips, eyelids, or that her throat is closing. /[id number]/MODL MTDD
--- NOTE | 2017-11-29 16:28 | ASDISCHSUM ---
Discharge Information Plan Status:Home with No Needs Medically Cleared to Leave:11/28/2017 Discharge Date:11/29/2017 03:24 PM CM D/C Disposition:Home, Routine, Self-Care ADT D/C Disposition:Home, Routine, Self-Care Projected Discharge Date:11/29/2017 12:00 AM Transportation at D/C:Family Discharge Delay Reason: Follow-Up Date:11/29/2017 12:00 AM Discharge Slot: Final Diagnosis:Facial swelling, neck pain, HTN, possible viral synd, central canal stenosis Placement Information Patient Contact Information Contact Name:JUANITA Relationship:Daughter Address: Work Phone: City:[place] Alternate Phone: [facility]/W4 Code:[place] Email: Financial Information Financial Class:Medicare Advantage Plans Primary Plan Desc:[facility] ADVANTAGE PLAN Primary Plan Number:[id number] Secondary Plan Desc: Secondary Plan Number: Assessment Information Case Management Discharge Plan Note Case Management Discharge Discharge Order Complete? Answers: Yes Patient to Obtain Answers: via Family Medications Transportation Arranged Answers: Family/Friends Transport will Pick (Date 11/29/2017 12:00 AM & Time) Family Notified Answers: Yes Notes: to transport Discharge Comments Notes: 77 year old female admitted for faial swelling, neck pain, concern for stroke. Found to have HTN, a possible viral synd, Central canal stenosis. No stroke indicated. Patient discharged home and to f/u w/Dr Agarwal as an out-pt. No other needs. Date Signed: 11/29/2017 04:27 PM Electronically Signed By:Merari Izquierdo LCSW Intervention Information
== END 2017-11-29 15:24 | disposition home or self-care (01) ==
LOC: F3N 19:49
PROVIDERS: ADMIT Internal Medicine; ATTEND Internal Medicine Pulmonary Disease
DX: R22.0 Localized swelling, mass and lump, head (principal); I10 Essential (primary) hypertension; M48.02 Spinal stenosis, cervical region; R29.810 Facial weakness; Z85.3 Personal history of malignant neoplasm of breast
CPT/HCPCS: 70487; 70491; 70551; 71275; 72156; A9585; G0378; J0171; J1200; J1885; J2930; J7512; Q9967; 96374

== ENCOUNTER → 2018-09-13 | Outpatient (CLI) | payer OTHER | LOC: FIMAGING 10:03 | PROVIDERS: ATTEND Internal Medicine Hematology & Oncology | DX: Z12.31 Encounter for screening mammogram for malignant neoplasm of breast (principal) ==

== ENCOUNTER → 2019-02-19 | Outpatient (CLI) | payer OTHER | LOC: FIMAGING 10:57 | PROVIDERS: ATTEND Physician Assistant | DX: M48.02 Spinal stenosis, cervical region (principal); G95.20 Unspecified cord compression; G95.89 Other specified diseases of spinal cord ==

== ENCOUNTER → 2019-03-22 | Outpatient (CLI) | payer OTHER | LOC: FIMAGING 14:45 | PROVIDERS: ATTEND Neurological Surgery | DX: M50.31 Other cervical disc degeneration, high cervical region (principal) ==

== ENCOUNTER → 2019-03-23 | Outpatient (CLI) | payer OTHER | LOC: FIMAGING 11:28 | PROVIDERS: ATTEND Physician Assistant | DX: R42 Dizziness and giddiness (principal) ==

== ENCOUNTER → 2019-04-14 | Day surgery (SDC) | payer OTHER ==
[~2019-04-14] MED LIST: ASPIRIN EC 325 MG TAB PO ONE; ATROPINE SULFATE 1 MG/10 ML SYR IVP PRN; DIAZEPAM 5 MG TAB PO ONE; FAMOTIDINE 20 MG TAB PO ONE; IOPAMIDOL (ISOVUE 370) 100 ML BTL IV ONE; LIDOCAINE 1% 5 ML SDV ONE; MIDAZOLAM 2 MG/2 ML VIAL ONE; NITROGLYCERIN 0.4 MG BTL SL PRN; NS 1,000 ML IV ONE; ONDANSETRON 4 MG/2 ML VIAL IVP PRN; diphenhydrAMINE 25 MG CAP PO ONE; fentaNYL 100 MCG/2 ML INJ ONE
[2019-04-14 09:16] LABS: PLATELET COUNT 211 10^3/uL (150-400)
[2019-04-14 09:25] LABS: INR 0.92 (0.83-1.16)
--- NOTE | 2019-04-14 10:18 | PDPROPOC ---
Sedation Plan of Care Sedation Plan of Care: vital signs stable, mental status noted, patient educated of risks, benefits, alternatives, patient can tolerate sedation ASA Classification: ASA 2 Planned drugs: fentanyl, midazolam Mallampati Score: Class 2 Mallampati Reference Image: Patient passed 3-3-2 rule?: Yes
--- NOTE | 2019-04-14 10:18 | PDHPUP ---
History & Physical Update H&P update statement: This history and physical update is based on an assessment of the patient which was completed after admission or registration (within 24 hours), but prior to the surgery/procedure. H&P update: H&P reviewed & patient examined, no change in patient's condition since H&P completed
--- NOTE | 2019-04-14 11:27 | CPIP ---
[f rep st] INVASIVE CARDIAC PROCEDURE DATE OF PROCEDURE: 04/14/2019 PROCEDURES: 1. Coronary angiography. 2. Left ventriculography. INDICATION: 1. Preoperative evaluation prior to cervical surgery. 2. Abnormal nuclear stress test that is intermediate risk. ACCESS: Patient was prepped and draped in sterile fashion. 1% lidocaine was used to anesthetize the right inguinal region. A 6-Iranian introducer sheath was placed selectively into the right common fe moral artery via modified Seldinger technique. CORONARY ANGIOGRAPHY: A 6-Iranian JL4 was advanced to left main coronary artery and images obtained. The left main coronary artery bifurcated into an LAD and circumflex coronary arteries. The left cooper n coronary artery appeared normal. The left anterior descending coronary artery gave rise to 2 promi nent diagonal branches. The left anterior descending coronary artery had a single, discrete 20% in t he mid vessel. The remainder of the vessel and diagonal arteries were free of any significant diseas e. The circumflex coronary artery is a large vessel and gave rise to 3 OM branches as well as 3 smal l posterolateral branches. The circumflex coronary artery and its complement branches appeared brittney l. A 6-Iranian JR4 was advanced to the right coronary artery and images obtained. The right coronary artery was dominant. The right coronary artery appeared normal. LEFT VENTRICULOGRAPHY: A 6-Iranian pigtail catheter was advanced in the left ventricle and images obt ained. Left ventricle is normal size and normal systolic function. Estimated ejection fraction was 55%. Left ventricular end-diastolic pressure was 19 mmHg. COMPLICATIONS: None. CONCLUSIONS: 1. Mild coronary artery disease, outflow limitation. 2. Normal left ventricular size and systolic function. 3. Plan is for medical management. /[id number]/MODL
--- NOTE | 2019-04-15 14:38 | CPEKG ---
Test Reason : OPEN Blood Pressure : / mmHG Vent. Rate : 052 BPM Atrial Rate : 052 BPM P-R Int : 177 ms QRS Dur : 088 ms QT Int : 427 ms P-R-T Axes : 042 000 -11 degrees QTc Int : 397 ms Sinus rhythm Confirmed by Ziyad Santo ([id number]) on 04/15/2019 2:38:22 PM Referred By: Ziyad Santo Confirmed By:Ziyad Santo
== END | disposition home or self-care (01) ==
LOC: FCATH 08:34
PROVIDERS: ATTEND Internal Medicine Cardiovascular Disease
PROC: 4A023N7 Measurement of Cardiac Sampling and Pressure, Left Heart, Percutaneous Approach (ICD-10-PCS; principal; 2019-04-14)
PROC: B2151ZZ Fluoroscopy of Left Heart using Low Osmolar Contrast (ICD-10-PCS; principal; 2019-04-14)
PROC: B2111ZZ Fluoroscopy of Multiple Coronary Arteries using Low Osmolar Contrast (ICD-10-PCS; principal; 2019-04-14)
DX: Z01.818 Encounter for other preprocedural examination (principal); I25.10 Atherosclerotic heart disease of native coronary artery without angina pectoris; M48.02 Spinal stenosis, cervical region; I10 Essential (primary) hypertension; Z85.3 Personal history of malignant neoplasm of breast; K21.9 Gastro-esophageal reflux disease without esophagitis; E78.5 Hyperlipidemia, unspecified
CPT/HCPCS: C1760; J1644; J2250; J3010; Q9967

== ENCOUNTER 2019-05-04 05:47 | Inpatient (IN) | payer OTHER | END 2019-05-06 16:23 | disposition home or self-care (01) | LOC: F3N 05:47 ==